=== PATIENT | male | born 1975 | race Caucasian/White ===

== ENCOUNTER 2024-03-26 18:13 | Emergency (ER) | payer OTHER, SELFPAY ==
[2024-03-26 18:33] VITALS: BP 137/100
--- NOTE | 2024-03-26 18:33 | ED.GENMED ---
ED Provider Triage
<Zachariah Chow PA-C - Last Filed: 03/26/24 18:34>
-
Patient seen by provider in Triage?: Seen in Triage
Attestation: A medical screening examination has been initiated by a qualified medical provider. Based on the assessment performed at this time, it has been determined that an emergent medical condition may exist and the patient has been informed
that further medical evaluation and possible additional diagnostic testing may be needed.
HPI: 48-year-old male presenting the ER for evaluation of mild chest discomfort and shortness of breath that has been ongoing for 1 week. Had a mild upper respiratory symptoms prior to this. No fevers. Blood pressure elevated at home. Blood
pressure here in triage 137/100. EKG nonischemic. Labs and chest x-ray ordered.
GENERAL: Alert , in no apparent distress
EYE: No visual abnormalities.
NECK: Trachea midline
ENT: No visible abnormalities.
LUNGS: No acute respiratory distress
NEUROLOGICAL: Alert and oriented
SKIN: Skin intact. No visible changes.
MUSCULOSKELETAL: Moving extremities normally
PSYCH: Normal and appropriate interaction.
This is a medical evaluation conducted in person to initiate diagnostic evaluation and provide initial therapeutics. Please see further documentation by the treating clinician.
History of Present Illness
<Zachariah Chow PA-C - Last Filed: 03/26/24 18:34>
General
Chief Complaint: Chest Pain
Time Seen by Provider: 03/26/24 22:16
<Gela Duarte DO - Last Filed: 03/27/24 06:39>
General
Source: patient
Exam Limitations: none
Nursing documentation reviewed up to this point in time: agreed with
History of Present Illness
History of Present Illness:
This is a 48-year-old gentleman who has no significant past medical history admits to mild URI 1-1 and half weeks ago, no fever at that time, symptoms were mild and resolved within the past week. Since then however he has had some left parasternal
chest pain that is worse with deep breath and also a sense of some mild shortness of breath but only noted when he attempts to take a deep breath. No dyspnea on exertion, no fever or chills, no dizziness nor lightheadedness, no palpitations. No
history of similar episodes in the past. Left parasternal chest discomfort is worse with deep breath but no other definitive aggravating factors.
No recent travel. He denies leg pain or swelling.
He takes no medicines on a daily basis.
He has been checking his blood pressure at home over the past 2 to 3 days and notes that it has been somewhat elevated with systolic in the 130s occasionally 140s.
No known history of hypertension but there is a family history of hypertension. No family history of CAD nor thromboembolism.
Past History
<Zachariah Chow PA-C - Last Filed: 03/26/24 18:34>
Past History
ED Past Medical History: None
ED Past Surgical History: None
Social History
Tobacco: Non-smoker
<Gela Duarte DO - Last Filed: 03/27/24 06:39>
Social History
Alcohol: Occasional
Personal:
Living: with family
Employment: Employed
Family History
Family History: Hypertension
Phy Exam
<Gela Duarte DO - Last Filed: 03/27/24 06:39>
Physical Exam
Physical Exam:
GENERAL: 48-year-old gentleman appears his stated age, bright and alert, pleasant, appears in no acute distress.
EYE: anicteric
NECK: Supple, nontender, no meningismus, no significant adenopathy.
ENT: oral mucosa is moist. No rhinorrhea.
CARDIAC: Regular rate and rhythm. no murmur. Mild tenderness left parasternal region with palpation.
LUNGS: Clear breath sounds bilaterally, no acute respiratory distress, no wheezes/rales/rhonchi
ABDOMEN: Soft, nondistended, without focal tenderness, no r/g, no cvat. normoactive BS.
NEUROLOGICAL: Alert and oriented x3, no focal neuro deficits. Gait is pinon and steady.
SKIN: Warm and dry, normal color, skin intact. No rash.
MUSCULOSKELETAL: No C/C/E. peripheral pulses are full and equal b/l. No palpable tenderness.
PSYCH: Normal and appropriate interaction.
Scores
<Gela Duarte DO - Last Filed: 03/27/24 06:39>
Heart Score for Chest Pain Patients
STEMI patient?: No
History: Slightly or Non-Suspicious
ECG: Normal
Age: >45 - <65 years
Risk Factors: No Risk Factors
Troponin: </= Normal Limit
Heart Score for Chest Pain Patients: 1
Heart Score Risk: 2.5% MACE over next 6 weeks
Course
<Zachariah Cohw PA-C - Last Filed: 03/26/24 18:34>
Orders/Labs/Results
Orders:
Orders
03/26/24 18:14
ECG [Electrocardiogram (*1)] Urgent
Reason for Study: Chest Pain
EKG- Treatment ONCE
03/26/24 18:34
CR Chest - 2 Views Urgent
Comment:
Reason For Exam: chest pain, SOB
03/26/24 18:45
Complete Blood Count/With Diff Urgent
Comprehensive Metabolic Panel Urgent
Troponin I Urgent
03/26/24 23:17
Ibuprofen [Motrin] 800 mg PO NOW STA
Abnormal Lab Results
03/26/24
18:45
RBC 4.68 L 10^6/uL
(4.70-6.10)
BUN 21 H mg/dl
(9-20)
03/26/24 18:45
03/26/24 18:45
Vital Signs
Initial and Last Documented VS:
Initial Vital Signs
Temp Pulse Resp BP Pulse Ox
98.4 F 69 16 137/100 98
03/26/24 18:33 03/26/24 18:33 03/26/24 18:33 03/26/24 18:33 03/26/24 18:33
Last Documented Vital Signs
Temp Pulse Resp BP Pulse Ox
98.4 F 54 11 112/79 99
03/26/24 18:33 03/27/24 00:01 03/27/24 00:01 03/27/24 00:01 03/27/24 00:01
<Gela Duarte DO - Last Filed: 03/27/24 06:39>
Orders/Labs/Results
Orders:
Orders
03/26/24 18:14
ECG [Electrocardiogram (*1)] Urgent
Reason for Study: Chest Pain
EKG- Treatment ONCE
03/26/24 18:34
CR Chest - 2 Views Urgent
Comment:
Reason For Exam: chest pain, SOB
03/26/24 18:45
Complete Blood Count/With Diff Urgent
Comprehensive Metabolic Panel Urgent
Troponin I Urgent
03/26/24 23:17
Ibuprofen [Motrin] 800 mg PO NOW STA
Abnormal Lab Results
03/26/24
18:45
RBC 4.68 L 10^6/uL
(4.70-6.10)
BUN 21 H mg/dl
(9-20)
03/26/24 18:45
03/26/24 18:45
Vital Signs
Initial and Last Documented VS:
Initial Vital Signs
Temp Pulse Resp BP Pulse Ox
98.4 F 69 16 137/100 98
03/26/24 18:33 03/26/24 18:33 03/26/24 18:33 03/26/24 18:33 03/26/24 18:33
Last Documented Vital Signs
Temp Pulse Resp BP Pulse Ox
98.4 F 54 11 112/79 99
03/26/24 18:33 03/27/24 00:01 03/27/24 00:01 03/27/24 00:01 03/27/24 00:01
<Gela Duarte DO - Last Filed: 03/27/24 06:39>
MDM/Problems Addressed
Differential Diagnosis Includes:
Patient presents with 1 week history of left parasternal chest discomfort worse with deep breath.
Recent mild URI resolved 1 week ago.
Concern for costochondritis, pleurisy, pneumonia, other consideration is ACS, pericarditis, myocarditis, GERD.
No risk factors for thromboembolism nor family history of such.
Overall exam is benign, unremarkable. No rub, lungs are clear to auscultation.
Mild tenderness left parasternal region.
EKG is unremarkable, no evidence of ACS.
Labs are unremarkable including negative troponin. With ongoing chest discomfort for a week, negative troponin and unremarkable EKG, ACS is doubtful.
Chest x-ray, preliminarily read by myself is unremarkable, clear lung bueno, normal heart size, normal mediastinum.
Mildly elevated blood pressure initially, 137/100 has normalized to 128/80.
History and exam most consistent with musculoskeletal parasternal chest pain, other consideration is mild pleurisy.
Recommend a course of NSAID with plan for prompt follow-up with PCP for recheck.
Return precautions discussed.
<Gela Duarte DO - Last Filed: 03/27/24 06:39>
*Radiology
Radiology exam reviewed: preliminary read by ED provider (Chest x-ray is unremarkable.)
*Pulse Oximetry
Patient hypoxic: no
*EKG
Interpreted by ED Provider?: Yes
Interpretation: normal
Comparison EKG: no comparison EKG present
Rate: bradycardiac
Rhythm: sinus
Celestine: normal axis
Interval: normal interval
QRS Pattern: normal QRS
Ischemia: no ischemia
*Dip Dyer Interpretation
Rate: bradycardiac
Interpretation: normal
Rhythm: sinus
*Critical Care Note
Total Time (30-74mins, 75-104mins- exclusive of procedures): Not Applicable
ED Attending Note
<Zachariah Chow PA-C - Last Filed: 03/26/24 18:34>
-
Portions of this chart may have been created with voice recognition software.� Occasional wrong word or��sound alike� substitutions may have occurred due to the inherent limitations of voice recognition software.
Discharge Plan
Departure
Patient Disposition: Home (Routine Discharge)
Date of Disposition: 03/26/24
Time of Disposition: 23:33
Patient with high blood pressure during this ER visit?: No
Condition: Good
Discharge Problem:
Acute costochondritis
Instructions: Costochondritis (DC), Low-sodium diet, Chest Pain PCP Follow Up
Prescriptions:
New
ibuprofen 800 mg tablet
800 mg PO QIDPRN PRN (Reason: pain, fever) Qty: 30 0RF
Referrals:
Marie Ramsay MD [Family Provider] - Call in 1-3 days for appt
Interventions
Interventions:
*Risk Screen - Suicide Last Done: 03/26/24 18:33
*General Assessment Last Done: 03/26/24 18:33
*Neglect/Abuse Screening Last Done: 03/26/24 18:33
ED- Fall Risk Assessment Last Done: 03/26/24 22:48
*ED COVID-19 Vaccine History Last Done: 03/26/24 18:33
*Nursing Disposition Last Done: 03/27/24 00:25
ED- Cardiac Assessment Last Done: 03/26/24 22:48
Discharge Date and Time
Discharge Date/Time: 03/27/24 00:25
Print Language: JAPANESE
[2024-03-26 18:53] LABS: % Basophils 0.5 % (0-2); % Eosinophils 1.7 % (0-6); % Immature Granulocytes 0.3 % (0-0.5); % Lymphocytes 34.8 % (20.5-51.1); % Monocytes 5.6 % (1.7-9.3); % Neutrophils 57.1 % (42.2-75.2); Absolute Eosinophils 0.1 10^3/uL (0-0.7); Absolute Lymphocytes 2.2 10^3/uL (1.2-3.4); Absolute Monocytes 0.4 10^3/uL (0.1-0.6); Absolute Neutrophils 3.6 10^3/uL (1.4-6.5); Hematocrit 40.7 % (39.0-52.0); Hemoglobin 14.1 g/dL (13.0-18.0); Mean Corp Hgb Conc. 34.6 g/dL (33.0-37.0); Mean Corpuscular Hgb 30.1 pg (27.0-31.0); Mean Platelet Volume 8.7 fL (7.4-10.4); Nucleated Red Blood Cells % 0 % (-); Platelet Count 238 10^3/uL (130-400); Red Blood Cell Count 4.68 10^6/uL (4.70-6.10); Red Cell Dist. Width 11.7 % (11.5-14.5); White Blood Cell Count 6.4 10^3/uL (4.8-10.8)
[2024-03-26 19:10] LABS: ALT (SGPT) 16 U/L (0-50); AST (SGOT) 21 U/L (17-59); Albumin 4.6 g/dl (3.5-5.0); Alkaline Phosphatase 70 U/L (38-126); Blood Urea Nitrogen 21 mg/dl (9-20); Calcium 9.2 mg/dl (8.4-10.2); Carbon Dioxide 29 mmol/L (22-30); Chloride 99 mmol/L (98-107); Glucose 93 mg/dl (70-99); Sodium 136 mmol/L (135-145); Total Bilirubin 0.4 mg/dl (0.2-1.3); Total Protein 8.1 g/dl (6.3-8.2); eGFR > 60.00
[2024-03-26 19:16] LABS: Troponin I < 0.012 ng/ml
[2024-03-26 22:09] VITALS: BP 133/83
[2024-03-26 22:48] VITALS: BMI 26.3
[2024-03-26 23:00] VITALS: BP 128/82
[2024-03-27 00:01] VITALS: BP 112/79
[2024-03-27] MEDS: MOTRIN 800 MG PO (00:13)
== END 2024-03-27 00:25 | disposition home or self-care (01) ==
LOC: EMR 18:13
PROVIDERS: Physician Assistant Medical; EMERGENCY PHYSICIAN Emergency Medicine; FAMILY PHYSICIAN Internal Medicine
DX: M94.0 Chondrocostal junction syndrome [Tietze] (principal)
CPT/HCPCS: 99285; 71046; 80053; 84484; 85025; 93005